=== PATIENT | female | born 1970 | race Caucasian/White ===

== ENCOUNTER 2021-06-24 11:24 | Outpatient (CLI) | payer MEDICARE, MEDICAID ==
[2021-06-24 22:17] LABS: SARS-CoV-2 PCR by NAA Not Detected (NotDetected)
== END 2021-06-24 11:25 | disposition home or self-care (01) ==
LOC: LABBT 11:24
PROVIDERS: ATTEND Internal Medicine Gastroenterology
DX: Z12.11 Encounter for screening for malignant neoplasm of colon (principal); F79 Unspecified intellectual disabilities; Z20.822 Contact with and (suspected) exposure to COVID-19; Z87.898 Personal history of other specified conditions
CPT/HCPCS: U0003; U0005